=== PATIENT | female | born 2000 | race Caucasian/White ===

== ENCOUNTER 2020-02-08 18:30 | Emergency (ER) | payer OTHER ==
[~2020-02-08] VITALS: Ht 177.8 cm; Wt 70.5 kg
[2020-02-08 19:17] VITALS: TEMP 99
[2020-02-08 19:53] LABS: COLLECTION METHOD CLEAN CATCH
[2020-02-08 20:16] LABS: MUCOUS Present /lpf; PH 5 (5-8); URINE APPEARANCE Hazy; URINE BACTERIA None Seen /hpf; URINE BILIRUBIN Negative (NEGATIVE); URINE BLOOD Negative (NEGATIVE); URINE CALCIUM OXALATE CRYSTAL Present /hpf; URINE COLOR Yellow; URINE GLUCOSE Negative (NEGATIVE); URINE KETONE Trace (NEGATIVE); URINE LEUKOCYTE ESTERASE Trace (NEGATIVE); URINE NITRATE Negative (NEGATIVE); URINE PROTEIN(semi-quant) Negative (NEGATIVE); URINE UROBILINOGEN Negative (NEGATIVE)
[2020-02-08] MEDS ORDERED: PERCOCET 325 MG1 TA2 PO (20:50)
[2020-02-08 21:02] VITALS: BP 113/70; PULSE 80
== END 2020-02-08 21:02 | disposition home or self-care (01) ==
LOC: COL.ER 18:30
PROVIDERS: Physician Assistant
DX: N20.2 Calculus of kidney with calculus of ureter (principal); Z87.442 Personal history of urinary calculi; Z84.1 Family history of disorders of kidney and ureter; Z88.1 Allergy status to other antibiotic agents